=== PATIENT | female | born 2000 | race Caucasian/White ===

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

== ENCOUNTER 2019-02-28 12:20 | Emergency (ER) | payer SELFPAY ==
[~2019-02-28] VITALS: Ht 160 cm; Wt 84.1 kg
[2019-02-28 12:28] VITALS: Ht 160 cm; Wt 84.1 kg
[2019-02-28 12:54] LABS: BASOPHILS 0.3 % (0-2); EOSINOPHILS 1.8 % (0-7); HEMATOCRIT 32.5 % (36.0-48.0); HEMOGLOBIN 9.8 g/dL (12-16); IMMATURE GRANULOCYTES 0.1 % (0-5); LYMPHOCYTES 25.4 % (15-50); MCH 20.4 pg (26.0-34.0); MCHC 30.2 g/dL (31.0-37.0); MCV 67.6 fL (80.0-100.0); MEAN PLATELET VOLUME 8.8 fL (7.4-10.4); MONOCYTES 6.6 % (2-11); NEUTROPHILS 65.8 % (40-80); PLATELET COUNT 340 10x3/uL (130-400); RBC 4.81 10x6/uL (4.00-5.40); RDW 16.2 % (11.5-14.5); WBC 7.9 10x3/uL (4.8-10.8)
[2019-02-28 13:11] LABS: HCG SERUM NEGATIVE (NEGATIVE)
[2019-02-28 13:13] LABS: ALBUMIN 3.9 g/dL (3.4-5.0); ALKALINE PHOSPHATASE 80 U/L (46-116); ALT (SGPT) 22 U/L (10-68); BILIRUBIN - TOTAL 0.23 mg/dL (0.2-1.3); CALC OSMOLALITY 273 mosm/kg (275-300); CARBON DIOXIDE 23.9 mmol/L (21.0-32.0); CHLORIDE - SERUM 105 mmol/L (98-107); CREATININE - SERUM 0.6 mg/dL (0.6-1.3); GLUCOSE 93 mg/dL (74-106); PROTEIN - SERUM 7.6 g/dL (6.4-8.2); SODIUM 138 mmol/L (136-145); UREA NITROGEN 8 mg/dL (7-18); eGFR NON AFRICAN AMERICAN > 90 mL/min (90-120)
[2019-02-28 13:15] LABS: AMYLASE - SERUM 31 U/L (25-115); LIPASE 165 U/L (73-393); TROPONIN-I < 0.017 ng/mL (0.000-0.060)
[2019-02-28 13:21] LABS: COLOR YELLOW (YELLOW)
[2019-02-28 13:22] LABS: APPEARANCE CLEAR (CLEAR); BILIRUBIN NEGATIVE (NEGATIVE); GLUCOSE NEGATIVE (NEGATIVE); KETONE NEGATIVE (NEGATIVE); NITRITE NEGATIVE (NEGATIVE); PROTEIN NEGATIVE (NEGATIVE); UROBILINOGEN NORMAL (NORMAL)
[2019-02-28] MEDS ORDERED: ZOFRAN ODT4 MG/UDTAB PO (15:00)
[2019-02-28] MEDS ORDERED: BENTYL 20 MG TA20 MG PO (15:00)
[2019-02-28 15:47] VITALS: BP 135/77
== END 2019-02-28 15:47 | disposition home or self-care (01) ==
LOC: D.ER 12:20
PROVIDERS: Family Medicine
DX: K52.9 Noninfective gastroenteritis and colitis, unspecified (principal); F17.210 Nicotine dependence, cigarettes, uncomplicated